=== PATIENT | male | born 1995 | race Caucasian/White ===

== ENCOUNTER 2022-07-07 15:56 | Emergency (ER) | payer SELFPAY ==
[2022-07-07 17:34] LABS: SARS-COV-2 RT PCR NEGATIVE (NEGATIVE)
--- NOTE | 2022-07-07 18:12 | ER ---
Nurse's Notes [facility] Name: Richy Sheppard Age: 27 yrs Sex: Male : 1995 Arrival Date: 07/07/2022 Time: 15:59 Bed IW2 Private MD: Diagnosis: Otitis media, unspecified, bilateral;Acute sinusitis, unspecified Presentation: 07/07 16:15 Chief complaint: Patient states: Sinus pressure, congestion, sneezing X 1 day. N/D. ld1 Coronavirus screen: At this time, the client does not indicate any symptoms associated with coronavirus-19. Ebola Screen: No symptoms or risks identified at this time. Initial Sepsis Screen: Does the patient meet any 2 criteria? No. Patient's initial sepsis screen is negative. Does the patient have a suspected source of infection? No. Patient's initial sepsis screen is negative. Risk Assessment: Do you want to hurt yourself or someone else? Patient reports no desire to harm self or others. Onset of symptoms was July 07, 2022 at 16:16. 16:15 Method Of Arrival: Ambulatory ld1 16:15 Acuity: RHODA 4 ld1 Triage Assessment: 16:16 Headache History: Denies prior headaches. General: Appears in no apparent distress. ld1 comfortable, Behavior is calm, cooperative, appropriate for age. Pain: Denies pain. EENT: No signs and/or symptoms were reported regarding the EENT system. Neuro: Level of Consciousness is awake, alert, obeys commands, Oriented to person, place, time, situation. Cardiovascular: Capillary refill < 3 seconds Patient's skin is warm and dry. Respiratory: Airway is patent Respiratory effort is even, unlabored. GI: Abdomen is round non-distended. : No signs and/or symptoms were reported regarding the genitourinary system. Derm: No signs and/or symptoms reported regarding the dermatologic system. Historical: - Allergies: 16:16 No Known Allergies; ld1 - PMHx: 16:16 Hypertensive disorder; Gout; ld1 - PSHx: 16:16 None; ld1 - Immunization history:: Adult Immunizations up to date, Client reports receiving the 2nd dose of the Covid vaccine. - Social history:: Smoking status: Patient denies any tobacco usage or history of. Patient/guardian denies using alcohol. Vital Signs: 16:15 BP 146 / 72; Pulse 86; Resp 18; Temp 98.3(O); Pulse Ox 100% on R/A; Weight 142.88 kg; ld1 Height 5 ft. 9 in. (175.26 cm); Pain 0/10; 16:15 Body Mass Index 46.52 (142.88 kg, 175.26 cm) ld1 ED Course: 15:59 Patient arrived in ED. as 16:15 Alec Greenfield PA is PHCP. cp 16:15 Alec Hannah MD is Attending Physician. cp 16:16 Triage completed. ld1 16:16 Arm band placed on right wrist. EKG completed in triage. Results shown to MD. ld1 16:38 COVID-19/FLU A+B Sent. iw 16:38 Strep Sent. iw 18:15 Patient did not have IV access during this emergency room visit. ld1 Administered Medications: No medications were administered Outcome: 18:12 Discharge ordered by MD. cp 18:15 Discharged to home ambulatory. ld1 18:15 Condition: stable 18:15 Discharge instructions given to patient, Instructed on discharge instructions, follow up and referral plans. medication usage, Demonstrated understanding of instructions, follow-up care, medications, Prescriptions given X 2. 18:15 Patient left the ED. ld1 Signatures: Nichole Peter Irene, RN RN Alec Greenfield PA PA cp Francheska Almeida RN RN ld1
--- NOTE | 2022-07-07 18:12 | EDPHYS ---
Physician Documentation [facility] Name: Richy Sheppard Age: 27 yrs Sex: Male : 1995 Arrival Date: 07/07/2022 Time: 15:59 Bed IW2 Private MD: ED Physician Alec Hannah HPI: 07/07 17:00 This 27 yrs old Male presents to ER via Ambulatory with complaints of Sinus Pain, cp Sneezing. 17:00 The patient or guardian reports cough, that is intermittent, sinus pressure and cp congestion. Onset: The symptoms/episode began/occurred yesterday. Associated signs and symptoms: Pertinent positives: rhinorrhea, Pertinent negatives: fever. Historical: - Allergies: 16:16 No Known Allergies; ld1 - PMHx: 16:16 Hypertensive disorder; Gout; ld1 - PSHx: 16:16 None; ld1 - Immunization history:: Adult Immunizations up to date, Client reports receiving the 2nd dose of the Covid vaccine. - Social history:: Smoking status: Patient denies any tobacco usage or history of. Patient/guardian denies using alcohol. ROS: 17:05 Constitutional: Negative for body aches, chills, fever, poor PO intake. cp 17:05 Eyes: Negative for injury, pain, redness, and discharge. cp 17:05 ENT: Positive for sinus congestion, Negative for drainage from ear(s), difficulty swallowing, difficulty handling secretions. 17:05 Respiratory: Positive for cough, Negative for shortness of breath, wheezing. 17:05 Abdomen/GI: Negative for abdominal pain, nausea, vomiting, and diarrhea. 17:05 Neuro: Negative for altered mental status, headache, weakness. 17:05 All other systems are negative. Exam: 17:10 Constitutional: The patient appears in no acute distress, alert, awake, non-toxic, well cp developed, well nourished, obese. 17:10 Head/face: Sinus tenderness, that is mild, is located over the right frontal sinus, cp left frontal sinus, right maxillary sinus and left maxillary sinus. 17:10 Eyes: Periorbital structures: appear normal, Conjunctiva: normal, no exudate, no injection, Lids and lashes: appear normal, bilaterally. 17:10 ENT: External ear(s): are unremarkable, Ear canal(s): are normal, clear, TM's: are normal, Nose: is normal, Mouth: Lips: moist, Oral mucosa: pink and intact, moist, Posterior pharynx: Airway: no evidence of obstruction, patent, Tonsils: no enlargement, no exudate, erythema, that is mild. 17:10 Neck: ROM/movement: is normal, is supple, without pain, no range of motions limitations. 17:10 Chest/axilla: Inspection: normal. 17:10 Cardiovascular: Rate: normal, Rhythm: regular. 17:10 Respiratory: the patient does not display signs of respiratory distress, Respirations: normal, no use of accessory muscles, no retractions, labored breathing, is not present, Breath sounds: stridor, is not appreciated, + upper airway congestion. wheezing: is not appreciated. 17:10 Abdomen/GI: Exam negative for discomfort, distension, guarding, Inspection: obese 17:10 Skin: no rash present. Vital Signs: 16:15 BP 146 / 72; Pulse 86; Resp 18; Temp 98.3(O); Pulse Ox 100% on R/A; Weight 142.88 kg; ld1 Height 5 ft. 9 in. (175.26 cm); Pain 0/10; 16:15 Body Mass Index 46.52 (142.88 kg, 175.26 cm) ld1 MDM: 16:18 Patient medically screened. jailene 18:12 Data reviewed: vital signs, nurses notes, lab test result(s), and as a result, I will cp discharge patient. 18:12 Differential Diagnosis: Bronchitis Influenza Sinusitis Pharyngitis Otitis Media cp Pneumonia. Counseling: I had a detailed discussion with the patient and/or guardian regarding: the historical points, exam findings, and any diagnostic results supporting the discharge/admit diagnosis, lab results, to return to the emergency department if symptoms worsen or persist or if there are any questions or concerns that arise at home. 07/07 16:29 Order name: Strep cp 07/07 16:29 Order name: COVID-19/FLU A+B cp 07/07 17:17 Order name: Throat Culture EDMS Administered Medications: No medications were administered Disposition Summary: 07/07/22 18:12 Discharge Ordered Location: Home cp Problem: new cp Symptoms: are unchanged cp Condition: Stable cp Diagnosis - Otitis media, unspecified, bilateral cp - Acute sinusitis, unspecified cp Followup: cp - With: Private Physician - When: 2 - 3 days - Reason: Worsening of condition Discharge Instructions: - Discharge Summary Sheet cp - Otitis Media, Adult cp - Sinusitis, Adult cp Forms: - Medication Reconciliation Form cp - Thank You Letter cp - Antibiotic Education cp - Prescription Opioid Use cp Prescriptions: - Flonase Allergy Relief 50 mcg/actuation Nasal spray,suspension - spray 1 spray by INTRANASAL route once daily; 1 Device; Refills: 0, Product cp Selection Permitted - Augmentin 875-125 mg Oral Tablet - take 1 tablet by ORAL route every 12 hours for 10 days; 20 tablet; Refills: 0, cp Product Selection Permitted Addendum: 07/10/2022 08:01 Co-signature as Attending Physician, Alec Hannah MD I agree with the assessment and c sanchez plan of care. Signatures: Dispatcher [employer] EDMA Alec Hannah MD MD cha Page, Corey, PA PA cp Francheska Almeida, RN RN ld1
[2022-07-07 18:19] VITALS: BP 146/72; TEMP 98.3; O2SAT 100
== END 2022-07-07 18:15 | disposition home or self-care (01) ==
LOC: ER 15:56
DX: J01.90 Acute sinusitis, unspecified (principal); H66.93 Otitis media, unspecified, bilateral; Z20.822 Contact with and (suspected) exposure to COVID-19
CPT/HCPCS: 0240U; 87070; 87081; 99283

== ENCOUNTER 2022-07-22 09:33 | Emergency (ER) | payer SELFPAY ==
--- NOTE | 2022-07-22 10:53 | ER ---
Nurse's Notes [facility] Name: Richy Sheppard Age: 27 yrs Sex: Male : 1995 Arrival Date: 07/22/2022 Time: 09:36 Bed IW3 Private MD: Diagnosis: Acute pharyngitis, unspecified Presentation: 07/22 10:27 Chief complaint: Patient states: Woke up with sore throat and 100 temperature. jl7 Coronavirus screen: sore throat, Client presents with at least one sign or symptom that may indicate coronavirus-19. Ebola Screen: No symptoms or risks identified at this time. Initial Sepsis Screen: Does the patient meet any 2 criteria? No. Patient's initial sepsis screen is negative. Does the patient have a suspected source of infection? No. Patient's initial sepsis screen is negative. Risk Assessment: Do you want to hurt yourself or someone else? Patient reports no desire to harm self or others. Onset of symptoms was July 22, 2022. 10:27 Method Of Arrival: Ambulatory [facility] 10:27 Acuity: RHODA 4 jl7 Triage Assessment: 10:28 General: Appears in no apparent distress. uncomfortable, Behavior is calm, cooperative, jl7 appropriate for age. Pain: Complains of pain in sore thraot Pain currently is 2 out of 10 on a pain scale. EENT: Throat is clear. Historical: - Allergies: 10:28 No Known Allergies; jl7 - Home Meds: 10:28 losartan oral [Active]; allopurinol Oral [Active]; topiramate oral [Active]; jl7 - PMHx: 10:28 Gout; Hypertensive disorder; jl7 - Immunization history:: Client reports receiving the 2nd dose of the Covid vaccine. - Social history:: Smoking status: Patient denies any tobacco usage or history of. Vital Signs: 10:27 BP 138 / 89; Pulse 113; Resp 17; Temp 100.2(O); Pulse Ox 97% ; Weight 158.76 kg; Height jl7 5 ft. 9 in. (175.26 cm); Pain 2/10; 10:27 Body Mass Index 51.69 (158.76 kg, 175.26 cm) jl7 ED Course: 09:36 Patient arrived in ED. rg4 09:38 Jono Arzola PA is PHCP. [facility] 09:38 Ted Live MD is Attending Physician. jmm 10:28 Triage completed. jl7 10:28 Arm band placed on right wrist. jl7 10:30 Patient placed in waiting room, Patient notified of wait time. jl7 10:30 Strep swab sent to lab. jl7 11:20 Lizeth Lopez, RN is Primary Nurse. jl7 11:26 No provider procedures requiring assistance completed. Patient did not have IV access jl7 during this emergency room visit. Administered Medications: 11:26 Drug: Decadron (dexamethasone) 10 mg Route: IM; Site: right deltoid; jl7 11:27 Follow up: Response: Medication administered at discharge. jl7 Outcome: 10:52 Discharge ordered by . jmm 11:26 Discharged to home ambulatory. jl7 11:26 Condition: stable 11:26 Discharge instructions given to patient, Instructed on discharge instructions, follow up and referral plans. medication usage, Demonstrated understanding of instructions, follow-up care, medications, Prescriptions given X 1. 11:27 Patient left the ED. jl7 Signatures: Jono Arzola PA PA Nicole Gallo rg4 Lizeth Lopez, RN RN jl7
--- NOTE | 2022-07-22 10:53 | EDPHYS ---
Physician Documentation [facility] Name: Richy Sheppard Age: 27 yrs Sex: Male : 1995 Arrival Date: 07/22/2022 Time: 09:36 Bed IW3 Private MD: ED Physician Ted Live HPI: 07/22 09:51 This 27 yrs old Male presents to ER via Ambulatory with complaints of Fever, Sore jmm Throat. 09:51 This is a 27-year-old male with history of gout and hypertension the presents emerged [facility] part with complaints of body aches, fever and sore throat beginning this morning. Denies cough, vomiting, abdominal pain.. Historical: - Allergies: 10:28 No Known Allergies; jl7 - Home Meds: 10:28 losartan oral [Active]; allopurinol Oral [Active]; topiramate oral [Active]; jl7 - PMHx: 10:28 Gout; Hypertensive disorder; jl7 - Immunization history:: Client reports receiving the 2nd dose of the Covid vaccine. - Social history:: Smoking status: Patient denies any tobacco usage or history of. ROS: 09:51 Constitutional: Positive for fever. jmm 09:51 ENT: Positive for sore throat. 09:51 Respiratory: Negative for cough. 09:51 All other systems are negative. Exam: 09:51 Constitutional: This is a well developed, well nourished patient who is awake, alert, jmm and in no acute distress. Head/Face: atraumatic. Eyes: EOMI, no conjunctival erythema appreciated 09:51 Neck: Trachea midline, Supple Chest/axilla: Normal chest wall appearance and motion. Cardiovascular: Regular rate and rhythm. No edema appreciated Respiratory: Normal respirations, no respiratory distress appreciated Abdomen/GI: Non distended Back: Normal ROM Skin: General appearance color normal MS/ Extremity: Moves all extremities, no obvious deformities appreciated, no edema noted to the lower extremities Neuro: Awake and alert Psych: Behavior is normal, Mood is normal, Patient is cooperative and pleasant 09:51 ENT: Posterior pharynx: erythema, that is moderate. Vital Signs: 10:27 BP 138 / 89; Pulse 113; Resp 17; Temp 100.2(O); Pulse Ox 97% ; Weight 158.76 kg; Height jl7 5 ft. 9 in. (175.26 cm); Pain 09/16; 10:27 Body Mass Index 51.69 (158.76 kg, 175.26 cm) [facility] MDM: 09:51 Patient medically screened. [facility] 10:51 Data reviewed: vital signs, nurses notes. Counseling: I had a detailed discussion with danie the patient and/or guardian regarding: the historical points, exam findings, and any diagnostic results supporting the discharge/admit diagnosis, lab results, the need for outpatient follow up, to return to the emergency department if symptoms worsen or persist or if there are any questions or concerns that arise at home. 07/22 09:53 Order name: Strep; Complete Time: 10:51 [facility] 07/22 10:52 Order name: Throat Culture EDMS Administered Medications: 11:26 Drug: Decadron (dexamethasone) 10 mg Route: IM; Site: right deltoid; [facility] 11:27 Follow up: Response: Medication administered at discharge. [facility] Disposition: 17:05 Co-signature as Attending Physician, Ted Live MD I agree with the assessment and rt plan of care. Disposition Summary: 07/22/22 10:52 Discharge Ordered Location: Home [facility] Condition: Stable [facility] Diagnosis - Acute pharyngitis, unspecified [facility] Followup: [facility] - With: Private Physician - When: 2 - 3 days - Reason: Recheck today's complaints, Continuance of care, Re-evaluation by your physician Discharge Instructions: - Discharge Summary Sheet [facility] - Pharyngitis [facility] Forms: - Medication Reconciliation Form [facility] - Thank You Letter [facility] - Antibiotic Education [facility] - Prescription Opioid Use [facility] - Work release form eb Prescriptions: - Amoxicillin 875 mg Oral Tablet - take 1 tablet by ORAL route every 12 hours for 10 days; 20 tablet; Refills: 0, [facility] Product Selection Permitted Signatures: Dispatcher [employer] EDMS Jono Arzola PA PA jmm Leal, Jahala, RN RN jl7 Ted Live MD MD rt
[2022-07-22] MEDS ORDERED: dexAMETHasone 10 MG/ML VIAL ONE (11:23)
[2022-07-22 11:33] VITALS: BP 138/89; TEMP 100.2; O2SAT 97
== END 2022-07-22 11:27 | disposition home or self-care (01) ==
LOC: ER 09:33
DX: J02.9 Acute pharyngitis, unspecified (principal)
CPT/HCPCS: 87070; 87081; 96372; 99283; J1100